=== PATIENT | male | born 1990 | race Two or more races ===

== ENCOUNTER 2019-04-07 16:15 | Emergency (ER) | payer OTHER ==
[~2019-04-07] VITALS: Ht 167.6 cm; Wt 65.8 kg
[2019-04-07] MEDS ORDERED: HYDROcodone-ACET 10/325MG TAB PO ONE (17:15)
[2019-04-07] MEDS ORDERED: KETOROLAC TROMETH 60MG/2ML VIAL IM ONE (17:15)
[2019-04-07 19:00] VITALS: BP 132/57
== END 2019-04-07 19:08 | disposition home or self-care (01) ==
LOC: ER 16:15 → EEVIPCON 16:15 → ER 19:08
DX: S46.912A Strain of unspecified muscle, fascia and tendon at shoulder and upper arm level, left arm, initial encounter (principal); X58.XXXA Exposure to other specified factors, initial encounter; Y93.89 Activity, other specified; Y92.89 Other specified places as the place of occurrence of the external cause; Y99.8 Other external cause status
CPT/HCPCS: 73030; 96372; 99283; J1885